=== PATIENT | male | born 1955 | race Caucasian/White ===

== ENCOUNTER 2020-01-19 15:15 | Outpatient (CLI) | payer OTHER ==
--- NOTE | 2020-01-23 14:48 | RAD ---
RIGHT HIP TWO VIEWS: Date: 01-19-2020 FINDINGS: Some degenerative changes are seen in the hip, but there is no fracture, dislocation, or joint space narrowing. The adjacent pubic ring appears intact. IMPRESSION: Mild degenerative change. POS: HOME
== END 2020-01-19 15:16 | disposition home or self-care (01) ==
LOC: BURRAD 15:15
PROVIDERS: ATTEND Family Medicine
DX: M25.551 Pain in right hip (principal); G89.29 Other chronic pain; M16.11 Unilateral primary osteoarthritis, right hip